=== PATIENT | male | born 1975 | race Caucasian/White ===

== ENCOUNTER 2019-02-21 16:34 | Inpatient (IN) | payer MEDICAID ==
[~2019-02-21] VITALS: Ht 182.9 cm; Wt 92.7 kg
[2019-02-21] VITALS (7 sets, daily range): BP systolic 115–127; BP diastolic 78–84; Ht 182.9 cm; Wt 92.7 kg
--- NOTE | ~2019-02-21 | OP ---
PATIENT NAME: GEOFF SINGH MEDICAL RECORD: [id number] :71 LOCATION:[facility] D.2315 ADMISSION DATE:02/21/19 SURGEON: LAUREN REECE MD DATE OF OPERATION: 02/21/2019 PROCEDURES: Left heart catheterization, selective coronary angiography, and right femoral artery approach. CATHETERS: A 5-Spanish sheath, 5/4 left and right [place], 5/4 pig. The procedure was well tolerated. The patient was placed in the ICU after the procedure was finished. FINDINGS: Left ventriculography in 30-degree BISHOP view, mild anterior apical hypokinesis, overall function is preserved at 50%. CORONARY ANATOMY: LEFT MAIN: Left main is free of disease. LAD: Has a long diffuse stenosis of 80% up to 90%. This is the tightest portion with some probable thrombus with a tight lesion. CIRCUMFLEX: Luminal irregularities. No flow obstructive disease. RIGHT CORONARY ARTERY: Luminal irregularities, no flow obstructive disease. PLAN: Intervention momentarily. DESCRIPTION OF PROCEDURE: A JL4 guiding catheter provided good guide catheter support, followed by 300 cm Whisper wire was placed across the diffuse lesion in the LAD down this portion of vessel. Stent deployed was a 3.5 x 26 mm Luis Alberto drug-eluting stent up to 14 atmospheres for 45 seconds. Final angiography shows excellent resolution 80% to 90% stenosis to no significant residual. JOSE FRANCISCO flow was 3 throughout the procedure. The patient was bolused with Integrilin, Plavix was loaded in the lab. Sheath was closed with ExoSeal device. TRANSINT:[id number] Voice Confirmation ID: [id number] DOCUMENT ID: [id number] LAUREN REECE MD CC: [id number] DICTATION DATE: 02/21/191725 CURING ROOM WORKER: 02/21/19 2243 ADM IN [id number] [place] [address]
--- NOTE | ~2019-02-21 | DS ---
PATIENT:GEOFF SINGH :71 MEDICAL RECORD: [id number] DISCHARGE SUMMARY ADMISSION DATE: 02/21/19 DISCHARGE DATE: 02/22/19 DATE OF ADMISSION: 02/21/2019 DATE OF DISCHARGE: 02/22/2019 PROBLEM LIST: 1. Acute anterior myocardial infarction. 2. Hypertension. 3. Hyperlipidemia. BRIEF HISTORY AND HOSPITAL COURSE: A 43-year-old gentleman transferred from [place] with hyperacute T waves, underwent an urgent revascularization of the LAD without sequelae. LV function was normal at that time, started on statin therapy due to the relative hypotension. Beta daryl was held at this point, was placed on Plavix. Discharged home in good condition. Follow up in about a month. ACTIVITY: As tolerated. DIET: AHA diet. TRANSINT:[id number] Voice Confirmation ID: [id number] DOCUMENT ID: [id number] LAUREN REECE MD CC: [id number] DICTATION DATE: 02/22/19 0855 PRECISION INSTRUMENT MAKER AND REPAIRER: 02/22/19 2156 DIS IN 02/22/19 [address] [place] [address]
--- NOTE | ~2019-02-21 | HEMODYNAMI ---
PATIENT:GEOFF SINGH MEDICAL RECORD: [id number] : 71 [id number] ADMISSION DATE: 02/21/19 Generatedon:02/21/201917:28 Patient name: GEOFF SINGH Patient #: [id number] SSN: : Date of study: 02/21/2019 Page: Of Hemodynamic Procedure Report Patient Data Patient Demographics Procedure consent was obtained First Name: GEOFF Gender: Male Last Name: SAMANTHA : 1975 Patient #: [id number] Age: 43 year(s) Race: Unknown Additional ID: [id number] Past Medical History Allergies: No known allergies Admission Admission Data Admission Date: 02/21/2019 Admission Time: 16:34 Procedure Procedure Types Cath Procedure Diagnostic Procedure C [facility] w/Coronaries Sedation Charges Moderate Sedation up to 15 minutes PCI Procedure AMI/SVG/CREATIVE SPECIALIST PTCA or Stent AMI-BMS/MATT Initial Procedure Description Procedure Date Procedure Date: 02/21/2019 Procedure Start Time: 17:04 Procedure End Time: 17:28 Procedure Staff Name Function Mikie Erickson MD Performing Physician Noemi Khan RT Monitor Sunny Tobias RN Nurse Nicol Ching RT Scrub Procedure Data Cath Procedure Fluoroscopy Diagnostic fluoroscopy Total fluoroscopy Time: 2.5 time: 2.5 min min Diagnostic fluoroscopy Total fluoroscopy dose: 451 dose: 451 mGy mGy Contrast Material Contrast Material Type Amount (ml) Isovue 300 100 Entry Location Entry Primary Successful Side Size Upsize Upsize Entry Closure Succes sful Closure Location (Fr) 1 (Fr) 2 (Fr) Remarks Device Remarks Femoral Right 6 Fr Exoseal artery Short Estimated blood loss: 10 ml Diagnostic catheters Device Type Used For End Catheter Placement MULTIPACK JL 4.0 5Fr Left Coronary catheter Angiography MULTIPACK 3DRC 5Fr Right Coronary catheter Angiography MULTIPACK Pigtail 5 Fr LV Angiography catheter Procedure Complications No complications Procedure Medications Medication Administration Route Dosage Oxygen etCO2 Nasal cannula 2 l/min Lidocaine 2% added to field 20 Lidocaine 2% added to field 20 Heparin Flush Bag added to field 2 bags (1000units/500ml NS) 0.9% NaCl I.V. 100 ml/hr Versed I.V. 2 mg Fentanyl I.V. 100 mcg Integrilin (Bolus I.V. 8.5 ml 2mg/ml) Nitro (50mg/250 D5W) I.V. drip Heparin Drip 1000 units/hr (38953yvkpd/250 D5W) Fentanyl I.V. 100 mcg Plavix P.O. 300 mg Hemodynamics Rest Heart Rate: 72 (bpm) Pressure Samples Time Site Value (mmHg) Purpose Heart Use Rate(bpm) 17:09 LV 117/8,11 EDP 84 17:09 LV 118/83,84 EDP 85 Gradients Valve Time Site Site Mean SEP/DFP Peak To Heart Use 1 2 (mmHg) (sec/min) Peak Rate (mmHg) (bpm) Aortic 17:09 LV AO 85 Snapshots Pre Cath Intra NCS Post Cath Vital Signs Time Heart Resp SPO2 etCO2 NIBP (mmHg) Rhythm Pain Status Sedation Rate (ipm) (%) (mmHg) Level (bpm) 16:59:00 80 18 99 36.4 124/85(103) NSR 4 (11) , 10(A) Distressing 17:03:12 75 16 96 42.4 114/75(97) NSR 5 (11) , Very 10(A) distressing 17:07:22 87 12 96 38.7 115/80(92) NSR 0 (11) , No 10(A) pain 17:11:32 87 19 96 37.2 121/83(95) NSR 0 (11) , No 10(A) pain 17:15:43 93 20 98 42.3 141/86(95) NSR 0 (11) , No 10(A) pain 17:19:59 84 13 99 44.6 126/85(101) NSR 0 (11) , No 10(A) pain 17:24:11 88 14 100 43.1 130/91(113) NSR 2 (11) , 10(A) Uncomfortable 17:28:25 85 17 100 37.9 141/93(113) NSR 0 (11) , No 10(A) pain Medications Time Medication Route Dose Verified Delivered Reason Notes Effectiveness by by 16:58:59 Nitro (50mg/250 I.V. stopped Mikie Correa D5W) drip St Imer Tobias RN, MD 16:59:06 Oxygen etCO2 2 l/min Mikie Langeie used for Nasal St Imer Tobias RN procedure cannula 16:59:14 Lidocaine 2% added 20ml Mikie Mikie for local to vial [facility] anesthetic field MD PURCELL 16:59:19 Heparin Drip I.V. 1000 Mikie Buffie (72207ofloi/250 drip- units/hr St Imer Tobias RN D5W) stopped 16:59:22 Lidocaine 2% added 20ml Mikie Deluna for local to vial [facility] anesthetic field MD PURCELL 16:59:27 Heparin Flush added 2 bags Mikie Ramseyory used for Bag to [facility] procedure (1000units/500ml field MD PURCELL NS) 16:59:35 0.9% NaCl I.V. 100 Mikie Langeie Per ml/hr St Imer Tobias RN physician 17:01:02 Fentanyl I.V. 100 mcg Mikie Correa for sedation St Imer Tobias RN, MD 17:01:56 Versed I.V. 2 mg Mikie Correa for sedation St Imer Tobias RN, MD 17:06:24 Fentanyl I.V. 100 mcg Mikie Correa for sedation St Imer Tobias RN, MD 17:09:42 Integrilin I.V. 8.5 ml Mikie Langeie for waste d (Bolus 2mg/ml) St Imer Tobias RN antiplatelet 1.5 ml MD therapy of vial 17:25:03 Plavix P.O. 300 mg Mikie Corera for pt wa s St Imer Tobias RN antiplatelet given MD therapy 3oo mg in [facility] Procedure Log Time Note 16:30:35 Sunny Tobias RN sent for patient. Start room use. 16:47:28 Time tracking: Regular hours (M-F 7:00 - 5:00) 16:47:33 Plan of Care:Hemodynamics will remain stable., Cardiac rhythm will remain stable., Comfort level will be maintained., Respiratory function will remain adequate., Patient/ family verbilizes understanding of procedure., Procedure tolerated without complication., Recovers from procedure without complications.. 16:47:47 Patient received from ED to CCL 1 Alert and oriented. Tansferred to table in Supine position. 16:47:49 Warm blankets applied, and omid hugger turned on for patient comfort. 16:47:49 Correct patient and procedure confirmed by team. 16:47:52 Signed procedure consent form obtained from patient. 16:47:53 ECG and BP/O2 sat monitors applied to patient. 16:57:58 Vital chart was started 16:58:01 Baseline sample Acquired. 16:58:03 Rhythm: sinus rhythm 16:58:04 Full Disclosure recording started 16:58:09 H&P Date Dictated: 02/21/2019 Emergent; H&P N/A. 16:58:10 Pre-procedure instructions explained to patient. 16:58:12 Family unavailable. 16:58:13 Patient NPO since Midnight. 16:58:17 Patient allergic to No known allergies 16:58:19 Is the patient allergic to Iodine/contrast media? No. 16:58:31 ACC The patient was administered the following blood thiners within the last 24 hours: ACCHeparin 16:58:32 Patient diabetic? No. 16:58:39 Previous problem with sedation/anesthesia? No ? 16:58:41 Snore? Yes 16:58:44 Is patient on blood thinner?Yes 16:58:47 ACC The patient was administered the following blood thiners within the last 24 hours: ACCPlavix 16:58:59 Nitro (50mg/250 D5W) stopped I.V. drip was administered by Sunny Tobias RN; ; 16:58:59 Sleep apnea? No 16:59:00 Deviated septum? No 16:59:01 Opens mouth fully? Yes 16:59:01 Sticks out tongue? Yes 16:59:04 Airway obstruction? No ? 16:59:05 Dentures? No ? 16:59:06 Oxygen 2 l/min etCO2 Nasal cannula was administered by Sunny Tobias RN; used for procedure; 16:59:07 Pre procedure: right dorsailis pedis pulse 2+ Normal; easily identifiable; not easily obliterated 16:59:14 Lidocaine 2% 20ml vial added to field was administered by Mikie Erickson MD; for local anesthetic; 16:59:19 Heparin Drip (50652jsrlj/250 D5W) 1000 units/hr I.V. drip- stopped was administered by Sunny Tobias RN; ; 16:59:21 Patient pain scale 4/10 CHEST. 16:59:22 Lidocaine 2% 20ml vial added to field was administered by Mikie Erickson MD; for local anesthetic; 16:59:27 Heparin Flush Bag (1000units/500ml NS) 2 bags added to field was administered by Mikie Erickson MD; used for procedure; 16:59:29 IV patent on arrival in right antecubital with 0.9% NaCl at KVO. 16:59:35 0.9% NaCl 100 ml/hr I.V. was administered by Sunny Tobias RN; Per physician; 16:59:39 SALINE LOCK LEFT ANTECUBITAL 16:59:44 Lab results completed and on chart. 16:59:49 Right groin area was prepped with chlora-prep and draped in sterile fashion 16:59:50 Alarms reviewed by R. N. 16:59:51 Sharps counted by scrub and verified by R.N. 16:59:52 Final Timeout: patient, procedure, and site verified with staff and physician. All members of the team are in agreement. 16:59:54 Right groin site verified by team. 16:59:58 Maximum allowable Isovue 300 dose 300ml. Physician notified. (300ml for normal creatinines. For patients with creatinine of 1.7 or higher multiply weight(kg) x 5 divided by creatinine.) 17:00:01 Fire Safety Assessment: A--An alcohol-based skin anteseptic being used preoperatively., C--Open oxygen or nitrous oxide is being used., D--An ESU, laser, or fiber-optic light is being used. 17:00:04 Physical assessment completed. ASA score P 2 - A patient with mild systemic disease as per Mikie Erickson MD. 17:00:08 Sedation plan: IV Moderate Sedation Medication:Versed, Fentanyl 17:00:16 Use device set Femoral Dx 17:00:16 Bag Decanter (2002S) opened to sterile field. 17:00:17 ACIST Syringe (77290) opened to sterile field. 17:00:18 Medline Cath Pack ([id number]) opened to sterile field. 17:00:19 DIAGNOSTIC WIRE .035 260cm J wire (831330) opened to sterile field. 17:00:20 ACIST Hand Control (14938) opened to sterile field. 17:00:21 ACIST Manifold (19289) opened to sterile field. 17:00:21 DIAGNOSTIC Multipack 5Fr catheter set (SI2646) opened to sterile field. 17:00:22 Tegaderm 4 x 4 (1626W) opened to sterile field. 17:00:33 SHEATH 6FR [place] (BWP164) opened to sterile field. 17:00:48 IV Extension Set opened to sterile field. 17:01:02 Fentanyl 100 mcg I.V. was administered by Sunny Tobias RN; for sedation; 17:01:56 Versed 2 mg I.V. was administered by Sunny Tobias RN; for sedation; 17:02:08 Zero performed for pressure channel P1 17:04:16 Procedure started. 17:04:24 Local anesthetic to right femoral artery with Lidocaine 2% by Mikie Erickson MD.INITIAL ACCESS ONLY 17:05:00 A 6 Fr Short sheath was inserted into the Right Femoral artery 17:05:59 A MULTIPACK JL 4.0 5Fr catheter was advanced over the wire and used for Left Coronary Angiography. 17:06:24 Fentanyl 100 mcg I.V. was administered by Sunny Tobias RN; for sedation; 17:06:59 Use device set BYRON PCI 17:07:07 WHISPER 300cm guide wire ([id number]) opened to sterile field. 17:07:09 INFLATOR Merit BasixCompak (PV6931) opened to sterile field. 17:07:28 Catheter removed. 17:07:33 A MULTIPACK 3DRC 5Fr catheter was advanced over the wire and used for Right Coronary Angiography. 17:08:12 GUIDE 6FR JL 4.0 catheter (CR5LS15) opened to sterile field. 17:08:19 Catheter removed. 17:08:23 A MULTIPACK Pigtail 5 Fr catheter was advanced over the wire and used for LV Angiography. 17:09:12 LV gram done using BISHOP 17:09:13 LV hemodynamics recorded. 17:09:16 Injector settings: Ml/sec: 10, Volume: 20, 17:09:25 Catheter removed. 17:09:34 Zero performed for pressure channel P1 17:09:36 Zero performed for pressure channel P1 17:09:39 Zero performed for pressure channel P1 17:09:41 Zero performed for pressure channel P1 17:09:42 Integrilin (Bolus 2mg/ml) 8.5 ml I.V. was administered by Sunny Tobias RN; for antiplatelet therapy; wasted 1.5 ml of vial 17:09:46 Zero performed for pressure channel P1 17:10:04 6 Fr JL 4.0 guide catheter was inserted over the wire 17:11:09 WHISPER wire advanced. 17:14:18 Place stent Inflation Number: 1 A VARUN OTW 3.5 x 30 stent ([id number]) was prepped and advanced across the Mid LAD. The stent was deployed at 14 ROBB for 0:18 (min:sec). 17:14:59 Inflation number: 2 The stent balloon was then re-inflated across the Mid LAD to 14 ROBB for 0:21 (min:sec). 17:15:21 Stent catheter was removed intact over wire. 17:15:22 Wire removed. 17:15:27 Guide catheter removed. 17:15:37 Sheath removed intact; hemostasis achieved with Exoseal to the Right Femoral artery. 17:15:39 Procedure ended.(Physican Out) 17:15:49 Fluoroscopy time 02.50 minutes. 17:15:52 Fluoroscopy dose: 451 mGy 17:15:52 Flurop Dose total: 451 17:15:56 Contrast amount:Isovue 300 100ml. 17:15:57 Sharps counted by scrub and verified by R.N. 17:15:59 Insertion/operative site no bleeding no hematoma. 17:16:01 Post-op/insertion site Right Femoral artery dressed using a 4 x 4 and Tegaderm. 17:16:07 Post Procedure Pulses reassessed and unchanged 17:16:10 Post-procedure physical assessment completed. ASA score P 2 - A patient with mild systemic disease as per Mikie Erickson MD. 17:16:12 Post procedure rhythm: unchanged. 17:16:15 Estimated blood loss: 10 ml 17:16:21 Post procedure instruction explained to patient.Patient verbalizes understanding. 17:16:21 Patient needs reinforcement of post procedure teaching. 17:16:27 Procedure Complication : No complications 17:16:29 See physician's report for complete and final results. 17:17:38 Procedure type changed to Cath procedure, Diagnostic procedure, LHC, LHC w/Coronaries, Sedation Charges, Moderate Sedation up to 15 minutes, PCI procedure, AMI/SVG/CREATIVE SPECIALIST PTCA or Stent, AMI-BMS/MATT Initial 17:18:41 Procedure and supply charges have been captured, reviewed, submitted and are correct. 17:18:46 EXOSEAL 6Fr (EX600) opened to sterile field. 17:25:03 Plavix 300 mg P.O. was administered by Sunny Tobias RN; for antiplatelet therapy; pt was given 3oo mg in [place] 17:28:13 Vital chart was stopped 17:28:15 Report given to ICU. 17:28:18 Patient transfered to ICU with Bed. 17:28:23 Procedure ended. 17:28:23 Full Disclosure recording stopped 17:28:27 End room use (Document Last) Intervention Summary Intervention Notes Time ActionType Lesion and Equipment Action# Pressure Duration Attributes Used 17:14:18 Place stent Mid LAD VARUN OTW 3.5 1 14 00:18 x 30 stent ([id number]) 17:14:59 Reinflate Mid LAD VARUN OTW 3.5 2 14 00:21 stent x 30 stent balloon ([id number]) Device Usage Item Name Manufacture Quantity Catalog Hospital Part Current Mini mal Lot# / Number Charge Number Stock Stock Serial# Code Bag Decanter Microtek 1 [id number] 28864 580384 5 () Medical Inc. ACIST Syringe Acist 1 13970 398077 699975 383023 20 (30430) Medical Systems Inc Medline Cath Medline 1 [id number] 983888 37919 056815 5 Pack ([id number]) DIAGNOSTIC St Prakash 1 232039 263330 441347 756472 30 WIRE .035 260cm J wire (669307) ACIST Hand Acist 1 96098 700293 251343 440894 5 Control Medical (86982) Systems Inc ACIST Acist 1 13135 944305 836744 023405 5 Manifold Medical (17891) Systems Inc DIAGNOSTIC Cardinal 1 MC6166 617020 21149 846013 30 Multipack 5Fr Health catheter set ([id number]) Tegaderm 4 x 3M 1 1626W 424033 264197 295932 5 4 (1626W) SHEATH 6FR Terumo 1 ICS699 269434 468391 869507 40 [place] (BKD413) IV Extension Hospira 1 32485-86 900889 76552 506300 5 Set MULTIPACK JL Cardinal 1 465385 5 4.0 5Fr Health catheter WHISPER 300cm Simpson 1 [id number] 558314 116981 425689 5 guide wire Vascular ([id number]) INFLATOR [facility] 1 OF6271 465934 228834 771069 15 [facility] Medical BasixCompak (MU6827) MULTIPACK Cardinal 1 414777 5 3DRC 5Fr Health catheter GUIDE 6FR JL Medtronic 1 [id number] 275263 32831 996594 1 4.0 catheter ([id number]) MULTIPACK Cardinal 1 232250 5 Pigtail 5 Fr Health catheter VARUN OTW 3.5 Medtronic 1 [id number] 964529 1575629 938022 5 [id number] x 30 stent ([id number]) EXOSEAL 6Fr Cardinal 1 EX600 549966 258691 979643 10 (EX600) Health Signature Audit [place] Stage Time Signature Unsigned Intra-Procedure 02/21/2019 Noemi 5:28:48 PM Counts RT(R) Signatures Monitor : Noemi Signature : Counts RT Date : Time : [address] [place] [address]
--- NOTE | ~2019-02-21 | HP ---
PATIENT: GEOFF SINGH MEDICAL RECORD: [id number] ACCOUNT: [id number] [id number] : [birth year] ADMISSION DATE: 02/21/19 PCP: No PCP HISTORY AND PHYSICAL EXAMINATION HISTORY: A 43-year-old gentleman presented to the Emergency Room in [place], found to have hyperacute changes and chest pain and given heparin. He was transferred here on urgent basis for emergent revascularization. PAST MEDICAL HISTORY: Hypertension. MEDICATIONS: Unknown blood pressure medication, Celexa 20 daily, Cogentin unknown dose. PHYSICAL EXAMINATION: GENERAL: Chronically ill appearing, in no acute distress. HEENT: Normocephalic and atraumatic. NECK: No bruits noted. HEART: Regular. S4 gallop is noted. LUNGS: Good air excursion. ABDOMEN: Soft and nontender. EXTREMITIES: Pulses 2+. No edema. IMPRESSION: Acute anterior myocardial infarction. PLAN: We will plan for angiography and intervention based on above. TRANSINT:[id number] Voice Confirmation ID: [id number] DOCUMENT ID: [id number] LAUREN REECE MD CC: [id number] DICTATION DATE: 02/21/191723 PHYSICIAN OFFICE SPECIALIST: 02/21/19 1852 ADM IN [facility] [address] [place] [address]
[2019-02-21] MEDS ORDERED: CELEXA10 MG PO (17:47)
[2019-02-21] MEDS ORDERED: BENZTROPINE MESY1 MG PO (17:47)
--- NOTE | 2019-02-21 17:49 | NUR ---
PT RECIEVED TO ICU ROOM 2315. O2 VIA RA O2 SAT 98% RR 16 NON LABORED. PT AWAKE ALERT ORIENTED X4. BP 134/87 VIA L ARM. HR 77 NSR. PT DENIES CP OR SOB AT THIS TIME. R GROIN DRSG CDI NO BLEED BRUISING OR HEMATOMA PRESENT TO SITE. PT GIVEN WATER FOR COMFORT. NO FAMILY AT THIS TIME. DENIES NEEDS WILL CONTINUE TO MONITOR
[2019-02-21 18:55] LABS: BASOPHILS 0.6 % (0-2); EOSINOPHILS 1.3 % (0-7); HEMATOCRIT 45.4 % (42.0-54.0); HEMOGLOBIN 15.7 g/dL (13.5-17.5); IMMATURE GRANULOCYTES 0.4 % (0-5); LYMPHOCYTES 13.5 % (15-50); MCH 30.5 pg (26.0-34.0); MCHC 34.6 g/dL (31.0-37.0); MCV 88.2 fL (80.0-100.0); MEAN PLATELET VOLUME 9.6 fL (7.4-10.4); MONOCYTES 7.8 % (2-11); NEUTROPHILS 76.4 % (40-80); PLATELET COUNT 165 10x3/uL (130-400); RBC 5.15 10x6/uL (4.20-6.10); RDW 12.9 % (11.5-14.5); WBC 10.3 10x3/uL (4.8-10.8)
[2019-02-21 19:00] LABS: CALC OSMOLALITY 278 mosm/kg (275-300); CALCIUM 8.8 mg/dL (8.5-10.1); CARBON DIOXIDE 26.2 mmol/L (21.0-32.0); CHLORIDE - SERUM 105 mmol/L (98-107); CREATININE - SERUM 0.9 mg/dL (0.6-1.3); GLUCOSE 93 mg/dL (74-106); POTASSIUM - SERUM 4.3 mmol/L (3.5-5.1); SODIUM 140 mmol/L (136-145); UREA NITROGEN 12 mg/dL (7-18); eGFR NON AFRICAN AMERICAN > 90 mL/min (90-120)
[2019-02-22] VITALS (9 sets, daily range): BP systolic 110–143; BP diastolic 63–90
--- NOTE | 2019-02-22 07:27 | NUR ---
REPORT RECIEVED, SHIFT ASSESSMENT COMPLETE, PT IS ALERT AND ORIENTED, ALL PPP, VSS, CALL LIGHT IN REACH
--- NOTE | 2019-02-22 09:15 | NUR ---
RIGHT A/C PIV DC'D AT THIS TIME, TIP INTACT, PT TOLERATED WELL, WILL CON'T TO MONITOR
--- NOTE | 2019-02-22 13:00 | NUR ---
PT DC'D AT THIS TIME,
--- NOTE | 2019-02-22 15:08 | MORECARE ---
CASE MANAGEMENT DISCHARGE SUMMARY PATIENT: GEOFF SINGH UNIT: [id number] ADM DATE: 02/21/19 AGE: 43 : [birth year] SEX: M ROOM/BED: D.2315 AUTHOR: RAFFY THIBODEAUX PHYSICIAN: REFERRING PHYSICIAN: LAUREN REECE MD DATE OF SERVICE: 02/22/19 Discharge Plan Patient Name: GEOFF SINGH [facility] [facility] 1975 Planned Disposition: Anticipated Discharge Date: Discharge Date: 02/22/2019 Expected LOS: Initial Reviewer: [email or web address] Initial Review Date: 02/21/2019 Generated: 02/22/19 4:08 pm Patient Name: GEOFF SINGH Page 42557 at 1508 All edits/amendments must be made on the electronic document DICTATION DATE: 02/22/19 1508 ASSEMBLER BODY: SUSANNE 02/22/19 1508 RPT#: [id number] DC DATE:02/22/19 STATUS: DIS IN [facility] [address] [place] [address] END OF REPORT
== END 2019-02-22 13:12 | disposition home or self-care (01) | DRG 247 ==
LOC: D.ER 16:34 → D.ICU 17:23
PROVIDERS: ADMIT Internal Medicine Interventional Cardiology; ATTEND Internal Medicine Interventional Cardiology
PROC: B2151ZZ Fluoroscopy of Left Heart using Low Osmolar Contrast (ICD-10-PCS; 2019-02-21)
PROC: 4A023N7 Measurement of Cardiac Sampling and Pressure, Left Heart, Percutaneous Approach (ICD-10-PCS; 2019-02-21)
PROC: 027034Z Dilation of Coronary Artery, One Artery with Drug-eluting Intraluminal Device, Percutaneous Approach (ICD-10-PCS; principal; 2019-02-21 16:30)
PROC: B2111ZZ Fluoroscopy of Multiple Coronary Arteries using Low Osmolar Contrast (ICD-10-PCS; 2019-02-21 16:30)
DX: I21.09 ST elevation (STEMI) myocardial infarction involving other coronary artery of anterior wall (principal); I10 Essential (primary) hypertension; E78.5 Hyperlipidemia, unspecified; F17.210 Nicotine dependence, cigarettes, uncomplicated